=== PATIENT | female | born 1935 | race Caucasian/White ===

== ENCOUNTER 2022-10-02 09:57 | Outpatient (REF) | payer MEDICARE, BC, SELFPAY ==
[2022-10-02 10:13] LABS: Appearance Urine Cloudy (Clear); Bilirubin Urine Negative (Negative); Blood Urine 3+ (Negative); Color Urine Yellow (Yellow); Glucose Urine Negative (Negative); Ketones Urine Negative (Negative); Leukocyte Esterase Urine 3+ (Negative); Nitrite Urine Positive (Negative); Protein Urine 2+ (Negative); Specific Gravity Urine 1.015 (1.000-1.030)
[2022-10-02 10:50] LABS: WBC Clumps Urine Moderate; WBC Urine 50-100 (0-5)
[2022-10-02 10:51] LABS: Bacteria Urine Moderate; Squamous Epithelial Cell Urine Moderate (None-Few)
== END 2022-10-02 09:58 | disposition home or self-care (01) ==
LOC: NPINS 09:57
PROVIDERS: PCP Physician Assistant Medical; Visit Provider Nurse Practitioner Adult Health
DX: R30.0 Dysuria (principal); R53.83 Other fatigue
CPT/HCPCS: 81001; 81003; 81015; 87086; 87186

== ENCOUNTER 2023-03-11 19:10 | Outpatient (CLI) | payer BC, SELFPAY | END 2023-03-11 19:11 | disposition home or self-care (01) | LOC: AMB 03-20 08:57 | PROVIDERS: PCP Physician Assistant Medical; Visit Provider Student in an Organized Health Care Education/Training Program | DX: S09.90XA Unspecified injury of head, initial encounter (principal); S29.9XXA Unspecified injury of thorax, initial encounter; R51.9 Headache, unspecified; W18.30XA Fall on same level, unspecified, initial encounter; Y92.121 Bathroom in nursing home as the place of occurrence of the external cause | CPT/HCPCS: A0425; A0429 ==

== ENCOUNTER 2023-03-11 19:31 | Emergency (ER) | payer BC, SELFPAY ==
[2023-03-11 19:35] VITALS: BP 146/93; PULSE 72; RESP 18; TEMP 36.7; O2SAT 95
--- NOTE | 2023-03-11 19:36 | ED_ITS ---
HPI - General Adult General Chief complaint: Laceration/Wound Stated complaint: pain Time Seen by Provider: 03/11/23 19:32 History of Present Illness HPI narrative: This 87-year-old female is in hospice care and has dementia. She does respond to her name but does not make any other responses. She is DNR DNI and comfort cares only. She comes in by ambulance because she fell in the bathroom and bumped her head apparently on the toilet role dispenser. She has a small hematoma in the left occipital region with a small laceration measuring about 0.5 cm. She does not appear to be in any acute distress. She arrives with normal vital signs. Review of Systems Status of ROS: Reports: unobtainable due to mental status Exam Narrative: Exam Narrative: Constitutional: Well-developed, well-nourished, no acute distress. HEENT: Small swelling in the left occipital region above the left aspect of the nuchal ligament where it attaches at the occiput. There is an overlying small laceration measuring about 0.5 cm. There is no active bleeding. Neck: Normal range of motion. Nontender. Supple. Heart: Regular. No murmurs. Normal rate. Intact distal pulses. Lungs: Clear to auscultation. No chest discomfort. No wheezes, rhonchi, or rales. Abdomen: Normal bowel sounds. Nontender. No rebound tenderness. Genitalia: Deferred. Back: No midline tenderness. Normal range of motion. Extremities: Normal range of motion. No injury. Skin: Intact. No rash. Warm. No erythema or pallor. Neurologic: No altered sensation. No weakness. Alert and oriented. Psychiatric: No suicidality. No anxiety or depression. No insomnia. Nursing notes and vitals signs are reviewed. Medical Decision Making MDM Narrative Medical decision making narrative: This patient is in hospice care with instructions that she receive comfort cares only. I did not do CT imaging. She did not show any sign of any other injury besides the small laceration in the back of her head. The wound was cleansed and then Dermabond was applied. The patient is okay to be discharged back to hospice care to continue those current plans. Discharge Plan Discharge Clinical Impression: Laceration Condition: Stable Additional Instructions: Continue current plans. Follow up with MD return as needed. Follow Up/Referrals: Kaya Judd PA-C [Primary Care Provider] - Stand Alone Forms: [employer] Info Instructions
--- NOTE | 2023-03-11 19:44 | ED.NURSE ---
call to [facility], update on pt lac glue repair by dr padgett. update to transfer pt back.
[2023-03-11 19:45] VITALS: BP 146/93; PULSE 72; RESP 18; TEMP 36.7; O2SAT 95
[2023-03-11 19:50] VITALS: BP 146/93; PULSE 72; RESP 18; TEMP 36.7
== END 2023-03-11 19:51 | disposition home or self-care (01) ==
PROVIDERS: Emergency Provider Emergency Medicine Emergency Medical Services; PCP Physician Assistant Medical
DX: S01.01XA Laceration without foreign body of scalp, initial encounter (principal); W18.00XA Striking against unspecified object with subsequent fall, initial encounter; Y92.012 Bathroom of single-family (private) house as the place of occurrence of the external cause
CPT/HCPCS: 12001; 99283; 99284

== ENCOUNTER 2023-03-11 19:48 | Outpatient (CLI) | payer BC, SELFPAY | END 2023-03-11 19:49 | disposition home or self-care (01) | LOC: AMB 03-15 15:00 | PROVIDERS: PCP Physician Assistant Medical; Visit Provider Student in an Organized Health Care Education/Training Program | DX: M54.2 Cervicalgia (principal) | CPT/HCPCS: 12001; 99283; 99284; A0425; A0428 ==